=== PATIENT | male | born 1970 | race Hispanic/Latino ===

== ENCOUNTER 2021-01-19 08:11 | Outpatient (CLI) | payer OTHER, SELFPAY ==
[2021-01-19 08:43] LABS: Alanine Aminotransferase 44 U/L (4-50); Albumin Level 4.2 g/dL (3.5-5.1); Alkaline Phosphatase 64 U/L (38-126); Anion Gap 6 mmol/L (8-16); Aspartate Amino Transferase 40 U/L (17-59); Bilirubin,Total 0.5 mg/dL (0.2-1.3); Blood Urea Nitrogen 14 mg/dL (9-20); Carbon Dioxide 30 mmol/L (22-30); Chloride 102 mmol/L (98-107); Cholesterol 235 mg/dL (0-200); Estimated Glomerular Filt Rate > 60; Glucose 106 mg/dL (75-110); HDL Direct 53 mg/dL; Potassium 3.7 mmol/L (3.4-5.0); Sodium 138 mmol/L (137-145); Triglycerides 179 mg/dL (<150)
[2021-01-19 08:53] LABS: LDL Cholesterol Direct 137 mg/dL
== END 2021-01-19 08:12 | disposition home or self-care (01) ==
PROVIDERS: PCP Internal Medicine; Visit Provider Nurse Practitioner
DX: Z12.5 Encounter for screening for malignant neoplasm of prostate (principal); E78.2 Mixed hyperlipidemia
CPT/HCPCS: 36415; 80053; 80061; 84153; G0103

== ENCOUNTER 2021-02-03 10:15 | Outpatient (CLI) | payer OTHER, SELFPAY ==
--- NOTE | ~2021-02-03 | CT_ITS ---
EXAMINATION: CTA brain DATE: 02/03/2021 10:54 INDICATION: Cerebral aneurysm, nonruptured. TECHNIQUE: Computed tomographic angiography (CTA) of the head was performed with 100 mL Omnipaque-350 intravenous contrast. Automated exposure control and iterative reconstruction technique were employe d. The dose-length product was 511.68 mGy-cm. Maximum intensity projection 3D reconstructions were c reated. Volume-rendered 3D reconstructions of the intracranial arteries were created by the technolog ist on a separate workstation. COMPARISON: Head CTA 10/26/2016 FINDINGS: There is no intracranial hemorrhage, acute infarction, or abnormal intracranial mass lesion . The ventricles are normal in size. The orbits are normal. There is mucosal thickening in the parana miesha sinuses. The mastoid air cells are normal. Left vertebral artery is dominant. There is no signifi cant stenosis of basilar artery or the posterior cerebral arteries. Right internal carotid artery is small and ends in the ophthalmic artery. The right anterior and middle cerebral artery territories ar e supplied across the anterior communicating artery from the left side. There is no significant steno sis of the anterior or middle cerebral arteries. 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 The posterior communicating arteries are normal. IMPRESSION: 1. 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 Reviewed, dictated and finalized at location A.
== END 2021-02-03 10:16 | disposition home or self-care (01) ==
PROVIDERS: PCP Internal Medicine; Visit Provider Nurse Practitioner
DX: I67.1 Cerebral aneurysm, nonruptured (principal)
CPT/HCPCS: 70496; Q9967

== ENCOUNTER → 2021-02-12 01:44 | Outpatient (CLI) | payer OTHER, SELFPAY ==
[2021-02-12 19:39] LABS: SARS-CoV-2 RNA PCR Negative
== END ==
PROVIDERS: PCP Internal Medicine; Visit Provider Internal Medicine Gastroenterology
DX: Z01.812 Encounter for preprocedural laboratory examination (principal); Z20.822 Contact with and (suspected) exposure to COVID-19
CPT/HCPCS: C9803; U0003; U0005

== ENCOUNTER 2021-02-15 01:26 | Day surgery (SDC) | payer OTHER, SELFPAY ==
[2021-02-04 11:37] VITALS: BMI 33.8
[2021-02-15 10:58] VITALS: BP 124/82; PULSE 64; RESP 18; TEMP 36.6; O2SAT 100; BMI 34.7
[2021-02-15] MEDS: LACTATED RINGERS 1,000 ML 150 ML IV CONT (11:06)
--- NOTE | 2021-02-15 11:14 | WPDANESEPPF ---
Anes - Initial Pre Proc Eval Procedure: Operation Date: 02/15/21 11:45 Proposed Procedures p Screening Colonoscopy - Arslan Merrill MD Date/Time: 02/15/21 11:14 Surgeon: Arslan Merrill MD Pre Op Diagnosis: neoplasm screening Patient Data Age: 50 Gender: M Height: 5 ft 7 in Weight: 100.4 kg Last Vital Signs Temp 97.8 F 02/15/21 10:58 Pulse 64 02/15/21 10:58 Resp 18 02/15/21 10:58 BP 124/82 02/15/21 10:58 Pulse Ox 100 02/15/21 10:58 Allergies Allergy/AdvReac Type Severity Reaction Status Date / Time aspirin Allergy Mild Rash Verified 02/15/21 10:57 Penicillins Allergy Mild Rash Verified 02/15/21 10:57 Home Medications Medication Instructions Recorded Confirmed Type No Home Medications 01/13/21 02/15/21 History Patient hx anesthesia problems: none Family hx anesthesia problems: none [facility] Past Medical History Medical History (Updated 02/15/21 @ 11:06 by Idris Lynne MD) Cerebral aneurysm, nonruptured Mixed hyperlipidemia Social History Social History Smoking status: Never smoker Alcohol intake: current Substance use: never Substance use type: does not use Living arrangements: with family Spiritual care concerns: No Anes - Eval Final PreProcedure Day of Procedure 02/15/21 11:14 Patient weight: obese Heart: regular rate and rhythm Lungs: clear to auscultation Airway: Mallampati scale class III Neurological: alert and oriented Last oral intake: >/= 8 hours ASA classification: III Emergent: no Anesthetic plan: proceed Anesthesia type and monitoring: general GIVS and standard monitoring Informed Consent: The patient's anesthetic plan and its attendant risks and benefits were discussed with the patient/family/POA. Questions were solicited and answers provided to the satisfaction of the patient/family/POA.
--- NOTE | 2021-02-15 11:35 | PM.HPGS ---
History of Present Illness History of Present Illness Consent: Risks, benefits, and alternatives have been discussed and questions answered. Patient agrees to proceed with procedure. Chief complaint: neoplasm screening Narrative: Cesar Gleason is a 50 year old male here for first screening colonoscopy Review of Systems Constitutional: Constitutional: Denies headache(s) and Denies weakness Eyes: Eyes: Denies blurry vision ENT: Reports Normal hearing present, Denies headache(s) and Denies neck pain Cardiovascular: Cardiovascular: Denies chest pain and Denies dyspnea Respiratory: Respiratory: Denies dyspnea Gastrointestinal: Gastrointestinal: Reports no additional gastrointestinal complaints Genitourinary: Genitourinary: Denies dysuria Musculoskeletal: Musculoskeletal: Denies neck pain Integumentary/Breasts: Skin/Breast: Denies dry skin Neurologic: Reports Normal hearing present, Denies headache(s) and Denies weakness Psychiatric: Psychiatric: Denies anxiety Endocrine: Endocrine: Denies change in body appearance Hematologic/Lymphatic: Hematologic/Lymphatic: Denies easy bleeding Allergic/Immunologic: Allergic/Immunologic: Denies urticaria PMFSH Past Medical History Medical History (Updated 02/15/21 @ 11:06 by Idris Lynne MD) Cerebral aneurysm, nonruptured Mixed hyperlipidemia Social History Social History Smoking status: Never smoker Alcohol intake: current Substance use: never Substance use type: does not use Living arrangements: with family Spiritual care concerns: No Meds Home Medications and Allergies Home Medications Medication Instructions Recorded Confirmed Type No Home Medications 01/13/21 02/15/21 History Allergies Allergy/AdvReac Type Severity Reaction Status Date / Time aspirin Allergy Mild Rash Verified 02/15/21 10:57 Penicillins Allergy Mild Rash Verified 02/15/21 10:57 Vital Signs Vital Signs - 24 hr 02/15/21 10:58 Temperature 97.8 F Pulse Rate 64 Respiratory Rate 18 Blood Pressure 124/82 Pulse Oximetry 100 Exam Const: General: comfortable and no acute distress HENMT: General nose exam: Normal nares present Eyes: General: appearance normal, both eyes and all related structures Neck: Neck: no JVD Resp: Auscultation: clear to auscultation bilaterally Cardio: Rate: regular rate Rhythm: regular rhythm GI: Inspection: non-distended GI Palp: Yes Soft to palpation Skin: General skin exam: normal color Neuro: General: gait normal Speech: normal speech Extrem: General: normal to inspection Psych: Mental Status: mental status grossly normal Assessment and Plan Assessment and plan (1) Screening for colon cancer: Code(s): Z12.11 - Encounter for screening for malignant neoplasm of colon Status: Acute Assessment and Plan: colonoscopy
[2021-02-15 11:53] VITALS: BP 112/74; PULSE 66; RESP 24; O2SAT 100
[2021-02-15 12:03] VITALS: BP 110/69; PULSE 63; RESP 25; O2SAT 100
[2021-02-15 12:13] VITALS: BP 118/80; PULSE 63; RESP 17; O2SAT 96
== END 2021-02-15 12:08 | disposition home or self-care (01) ==
PROVIDERS: PCP Internal Medicine; Visit Provider Internal Medicine Gastroenterology
PROC: 0DJD8ZZ Inspection of Lower Intestinal Tract, Via Natural or Artificial Opening Endoscopic (ICD-10-PCS; CPT 45378; principal; 2021-02-15 11:45)
DX: Z12.11 Encounter for screening for malignant neoplasm of colon (principal); K63.5 Polyp of colon; K64.8 Other hemorrhoids; E78.2 Mixed hyperlipidemia; I67.1 Cerebral aneurysm, nonruptured; E66.9 Obesity, unspecified; Z68.34 Body mass index [BMI] 34.0-34.9, adult
CPT/HCPCS: 45380; 88305; C9803; J2704; J7120; U0003; U0005

== ENCOUNTER 2023-11-14 07:39 | Outpatient (CLI) | payer OTHER, SELFPAY ==
[2023-11-14 08:33] LABS: Basophils Percent Auto 0.7 % (0.2-1.2); Eosinophils Absolute Auto 0.4 K/mm3 (0-0.3); Eosinophils Percent Auto 6.8 % (0-4.4); Hematocrit 30.9 % (42.0-52.0); Hemoglobin 8.7 g/dL (14.0-18.0); Immature Granulocyte Absolute 0.02 K/mm3 (0.00-0.031); Immature Granulocyte Percent A 0.4 % (0-0.5); Lymphocytes Absolute Auto 1.68 K/mm3 (0.9-3.2); Lymphocytes Percent Auto 29.9 % (18.3-44.2); Mean Corpuscular HGB Conc 28.2 g/dl (32-36); Monocytes Absolute Auto 0.4 K/mm3 (0.1-0.6); Monocytes Percent Auto 7.3 % (2.6-8.5); Neutrophils Absolute Auto 3.1 K/mm3 (1.3-6.7); Neutrophils Percent Auto 54.9 % (45.5-73.1); Platelet Count Result 364 k/mm3 (150-375); Red Blood Count 4.35 M/mm3 (4.6-6.20); Red Cell Distribution Width 15.8 % (11.5-14.5); White Blood Count 5.6 K/mm3 (4.5-10.0)
[2023-11-14 08:40] LABS: Alanine Aminotransferase 31 U/L (6-50); Albumin Level 4.1 g/dL (3.5-5.1); Alkaline Phosphatase 67 U/L (38-126); Anion Gap 7 mmol/L (8-16); Aspartate Amino Transferase 30 U/L (17-59); Bilirubin,Total 0.4 mg/dL (0.2-1.3); Blood Urea Nitrogen 14 mg/dL (9-20); Calcium 8.5 mg/dL (8.4-10.2); Carbon Dioxide 28 mmol/L (22-30); Chloride 103 mmol/L (98-107); Cholesterol 187 mg/dL (0-200); Estimated Glomerular Filt Rate > 60; Glucose 99 mg/dL (65-110); HDL Direct 42 mg/dL; Potassium 3.8 mmol/L (3.4-5.0); Sodium 138 mmol/L (137-145); Triglycerides 129 mg/dL (<150)
[2023-11-14 08:55] LABS: Schistocytes None Seen (NORMAL); Stomatocytes 2+ (NORMAL)
[2023-11-14 08:56] LABS: Hypochromasia 2+ (NORMAL); Ovalocytes 1+ (NORMAL)
[2023-11-14 08:58] LABS: LDL Cholesterol Direct 110 mg/dL
[2023-11-14 09:10] LABS: Prostate Specific Antigen 1.4 ng/mL (< OR = 4.0)
== END 2023-11-14 07:40 | disposition home or self-care (01) ==
LOC: ANHLAB 07:41
PROVIDERS: PCP Nurse Practitioner Family; Visit Provider Family Medicine
DX: Z00.00 Encounter for general adult medical examination without abnormal findings (principal)
CPT/HCPCS: 36415; 80053; 80061; 84153; 85025; G0103

== ENCOUNTER 2023-12-05 08:28 | Outpatient (CLI) | payer OTHER, SELFPAY ==
[2023-12-05 08:51] LABS: Hematocrit 30.7 % (42.0-52.0); Hemoglobin 8.9 g/dL (14.0-18.0); Mean Corpuscular Hemoglobin 19.7 pg (26-34); Mean Corpuscular Volume 67.9 fl (80-100); Mean Platelet Volume 8.6 fl (7.4-10.4); Platelet Count Result 358 k/mm3 (150-375); Red Blood Count 4.52 M/mm3 (4.6-6.20); Red Cell Distribution Width 16.6 % (11.5-14.5); White Blood Count 6.2 K/mm3 (4.5-10.0)
[2023-12-05 09:48] LABS: Iron 32 ug/dL (49-181)
[2023-12-05 10:04] LABS: Percent Iron Saturation 6 % (20-50)
== END 2023-12-05 08:29 | disposition home or self-care (01) ==
LOC: ANHLAB 08:29
PROVIDERS: PCP Nurse Practitioner Family; Visit Provider Family Medicine
DX: D64.9 Anemia, unspecified (principal)
CPT/HCPCS: 36415; 82607; 83540; 83550; 85027

== ENCOUNTER 2023-12-11 08:23 | Outpatient (CLI) | payer OTHER, SELFPAY ==
--- NOTE | ~2023-12-11 | CT_ITS ---
EXAMINATION: CTA brain DATE: 12/11/2023 08:50 INDICATION: Cerebral aneurysm, nonruptured. TECHNIQUE: Computed tomographic angiography (CTA) of the head was performed with 100 mL Omnipaque-350 intravenous contrast. Automated exposure control and iterative reconstruction technique were employe d. The dose-length product was 523.14 mGy-cm. Maximum intensity projection 3D reconstructions were c reated. Volume-rendered 3D reconstructions of the intracranial arteries were created by the technolog ist on a separate workstation. COMPARISON: CT 02/03/2021 FINDINGS: There is no intracranial hemorrhage, acute infarction, or abnormal intracranial mass lesion . The ventricles are normal in size. There is mucosal thickening in the paranasal sinuses. The mastoi d air cells are normal. There are old fracture deformities of the nasal bones. The orbits are normal. Left vertebral artery is dominant. There is no significant stenosis of basilar artery or the posteri or cerebral arteries. Right internal carotid artery is small and ends in the ophthalmic artery. The r ight anterior and middle cerebral artery territories are supplied across the anterior communicating a rtery. There is no significant stenosis of left internal carotid artery or the anterior or middle cer ebral arteries. 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 IMPRESSION: 1. 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 Reviewed, dictated and finalized at location A. STAYER
== END 2023-12-11 08:24 ==
LOC: MICIMG 08:25
PROVIDERS: PCP Family Medicine; Visit Provider Family Medicine
DX: I72.8 Aneurysm of other specified arteries (principal)
CPT/HCPCS: 70496; Q9967

== ENCOUNTER 2023-12-11 09:03 | Outpatient (CLI) | payer OTHER, SELFPAY ==
[2023-12-11 11:48] LABS: IFOB Positive Control Positive; Immunochemical Fecal Occult Bl Negative (N)
== END 2023-12-11 09:04 | disposition home or self-care (01) ==
LOC: ANHLAB 09:04
PROVIDERS: PCP Family Medicine; Visit Provider Family Medicine
DX: D64.9 Anemia, unspecified (principal)
CPT/HCPCS: 82274